=== PATIENT | female | born 1990 | race Caucasian/White ===

== ENCOUNTER 2018-05-09 14:59 | Emergency (ER) | payer BC ==
--- NOTE | 2018-05-12 10:55 | ER ---
DATE SEEN: 05/09/2018 TIME SEEN: The patient was seen at 1515 hours. HISTORY OF PRESENT ILLNESS: This is a 27-year-old nulliparous woman who comes in with a history of last menstrual period approximately a month ago, 04/02/2018. She has not used any form of contraception and has a small amount of vaginal bleeding. 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 Pain is mild, 3 to 4/10 in intensity, onset of vaginal bleeding was 0845 hours this morning. She has minimal discomfort. No change in bowels. No frequency, urgency, or dysuria to suggest urinary tract infection. REVIEW OF SYSTEMS: Negative. MEDICATIONS: 1. vitamins. 2. Glucosamine. 3. Zyrtec. 4. Biotin gummy. ALLERGIES: Latex. PHYSICAL EXAMINATION: VITAL SIGNS: Blood pressure 129/69, heart rate 67 and regular, respirations 18, oxygen saturation 100%. HEENT: PERRLA, intact. Pharynx without abnormality. No thyromegaly. LUNGS: Clear without rales, rhonchi, or wheezes. HEART: S1, S2. No murmur. ABDOMEN: Soft. No guarding. No abdominal discomfort. Mild fullness of the bladder. A quick look ultrasound did not demonstrate a yolk sac. The uterine cavity appeared to be empty, but it is difficult to ascertain this as this is very early in , 4+ weeks. Serum hCG was 521. This puts in a category between 2 and 4 weeks' . The patient advised to forego intercourse. Reassured. Follow up with doctor in a week. Repeat the serum hCG. DIAGNOSIS: Early diagnosis first trimester uterine bleed with serum hCG of 512 , puts her in the category between 1 to 2 weeks to 3 to 4 weeks' gestation. /[id number] ODELL/OFE [place]UPONT
== END 2018-05-09 17:00 | disposition home or self-care (01) ==
LOC: FB.ED 14:59
DX: O20.9 Hemorrhage in early pregnancy, unspecified (principal); Z91.040 Latex allergy status
CPT/HCPCS: 36415; 84702; 99284